=== PATIENT | female | born 1940 | race Caucasian/White ===

== ENCOUNTER 2018-12-04 09:29 | Day surgery (SDC) | payer BC ==
[~2018-12-04 09:29] MED LIST: ACETAMINOPHEN 1,000 MG/100 ML BTL IVPB ONE
[2018-12-04] MEDS ORDERED: ONDANSETRON HCL IV 4 MG/2 ML VIAL IVP ONE (09:30)
[2018-12-04] MEDS ORDERED: PROPOFOL 10 MG/ML VIAL IV ONE (09:30)
[2018-12-04] MEDS ORDERED: SEVOFLURANE 250 ML INH ONE (09:30)
[2018-12-04] MEDS ORDERED: LIDOCAINE 2% MDV (20MG/ML) 20ML VIAL IV ONE (09:30)
[2018-12-04] MEDS ORDERED: FENTANYL PF 100MCG/2ML VIAL IV ONE (09:30)
[2018-12-04] MEDS ORDERED: MIDAZOLAM HCL 2MG/2ML VIAL IV ONE (09:30)
[2018-12-04] MEDS ORDERED: DEXAMETHASONE 4 MG/ML 1ML VIAL IVP ONE (09:30)
[2018-12-04] MEDS ORDERED: RINGERS SOLUTION,LACTATED 1,000 ML IV ONE ×2 (10:15→10:46)
[2018-12-04] MEDS ORDERED: BUPIVACAINE 0.25% W/EPI MPF 30ML VIAL SQ ONE (12:18)
--- NOTE | 2018-12-05 08:41 | Operative Note ---
DATE OF SURGERY: 12/04/2018 SURGEON: Cal Yee DO PREOPERATIVE DIAGNOSES: 1. Torn medial meniscus of the left knee. 2. Chondromalacia of the left knee. POSTOPERATIVE DIAGNOSES: 1. Torn medial meniscus of the left knee. 2. Chondromalacia of the patella, trochlea, medial femoral condyle, and medial tibial plateau, left knee. OPERATION: 1. Arthroscopic partial medial meniscectomy, left knee. 2. Arthroscopic chondroplasty of the patellofemoral joint and medial femoral condyle and medial tibial plateau, left knee. DESCRIPTION OF PROCEDURE: This 78-year-old female was taken to the operating room and placed in the supine position on the operating room table. General anesthesia was induced. The left lower extremity was elevated. It was exsanguinated and the tourniquet inflated to 300 mmHg. Arthroscopic knee bartlett applied. Left knee prepped with Hibiclens and draped in the usual sterile fashion. An inferolateral portal was established for the 4 mm arthroscope, and initial evaluation of the joint demonstrated normal appearance of the suprapatellar pouch but there were advanced grade 3 changes noted in the patella with barely a thin layer of articular cartilage covering the lateral and medial facets. A marked disruption of the periphery of the patella articular cartilage was also present, and a chondroplasty was performed to remove unstable fragments of articular cartilage. The trochlea demonstrated advanced grade 2 lesions throughout the entire articulating surface with the patella, and chondroplasty was performed there as well. The medial compartment was entered, and a complex tear of the medial meniscus was present with the apex of the tear being at approximately the 12 to 12:30 position. Utilizing the basket forceps and rotating shaver, we resected back to the apex of the tear and tapered in each direction to restore stability. It was then further smoothed and contoured with the rotating shaver to form a stable rim of meniscus. The patient's medial femoral condyle demonstrated chronic grade 2 changes. There were grade 3 changes noted in the medial tibial plateau and chondroplasty was performed to stabilize the articular cartilage in those locations. The intracondylar notch was examined and found to be normal. The medial compartment was entered, and the lateral compartment did not demonstrate any articular cartilage lesions. There was very superficial fraying of the lateral meniscus but it was not further disturbed. The joint was then copiously irrigated and suctioned. All meniscal chips were removed from the joint. The joint was suctioned. The instruments were removed. The portals infiltrated with 0.25% Marcaine with epinephrine. Sterile dressings applied, tourniquet and knee bartlett released, and the patient taken to the recovery room in satisfactory condition. GROSS PATHOLOGY: This patient demonstrated advanced degenerative disease of the patella and lateral tibial plateau with grade 3 changes noted in both those locations with advanced grade 2 lesions noted in the trochlea and medial femoral condyle. Complex tear of the medial meniscus was present as described. NIRMAL
== END 2018-12-04 13:35 | disposition home or self-care (01) ==
LOC: SUR 09:29
PROVIDERS: ATTEND Orthopaedic Surgery
DX: S83.232A Complex tear of medial meniscus, current injury, left knee, initial encounter (principal); M94.262 Chondromalacia, left knee; I10 Essential (primary) hypertension; E78.00 Pure hypercholesterolemia, unspecified; G47.33 Obstructive sleep apnea (adult) (pediatric); Z86.711 Personal history of pulmonary embolism
CPT/HCPCS: 29881; 01400; J2405; J3010; J7120

== ENCOUNTER 2019-01-22 08:56 | Day surgery (SDC) | payer BC ==
[2019-01-22] MEDS ORDERED: LIDOCAINE 2% MDV (20MG/ML) 20ML VIAL IV ONE (08:57)
[2019-01-22] MEDS ORDERED: PROPOFOL 10 MG/ML VIAL IV ONE (08:57)
--- NOTE | 2019-01-23 07:12 | Operative Note ---
OPERATION: COLONOSCOPY with hot snare polypectomy. PREOPERATIVE DIAGNOSIS: Personal history of colon cancer. POSTOPERATIVE DIAGNOSES: 1. Normal-appearing ileocolonic anastomosis. 2. Sessile rectal polyp. PROCEDURE: After informed consent was obtained from the patient, she was placed in the left lateral decubitus position in the endoscopy suite, sedated and monitored by the department of anesthesia. Digital rectal exam was unremarkable. A well-lubricated [id number] colonoscope was inserted into the rectum and advanced to the cecum. In fact, this was a neocecum, as there was an ileocolonic anastomosis, which appeared unremarkable. The remaining right colon, transverse colon, descending colon, sigmoid colon, and rectum were otherwise unremarkable. However, upon further inspection, there was a polyp just proximal to the most distal rectal valve. This polyp was approximately 1.4 cm in diameter and was removed with a polypectomy snare and ERBE Endocut current. This polyp was, in fact, removed in piecemeal fashion with 2 pieces being required for total resection. Photograph was taken. There was no bleeding at the polypectomy site. J-turn views of the anorectum were unremarkable. The endoscope was straightened, the rectal ampulla deflated, and the endoscope was removed. RECOMMENDATIONS: We will await results of tissue histology. The patient will require repeat exam in 1-3 years. In the meantime, she should follow a soft, low-fiber diet. As always, thank you for allowing me to participate in the healthcare of your patients. NIRMAL
== END 2019-01-22 10:22 | disposition home or self-care (01) ==
LOC: HOP 08:56
PROVIDERS: ATTEND Internal Medicine Gastroenterology
DX: Z12.11 Encounter for screening for malignant neoplasm of colon (principal); D12.8 Benign neoplasm of rectum; Z85.038 Personal history of other malignant neoplasm of large intestine; I10 Essential (primary) hypertension; E78.00 Pure hypercholesterolemia, unspecified